=== PATIENT | female | born 1995 | race Caucasian/White ===

== ENCOUNTER 2019-07-23 08:47 | Outpatient (CLI) | payer OTHER ==
[2019-07-23 09:10] VITALS: BP 143/88
--- NOTE | 2019-07-23 18:07 | PROCEDURE REPORT ---
- HPI Diagnosis/Indication for NST: Gestational Hypertension Current EDU 08/06/19 Gestation 38 Weeks and 0 Days 1 Para 0 Vital Signs Temperature 36.6 C 07/23/19 09:04 Heart Rate 90 07/23/19 09:04 Respiratory Rate 16 07/23/19 09:04 Blood Pressure 143/88 H 07/23/19 09:04 O2 Saturation 100 07/23/19 09:04 Temperature 36.6 C 07/23/19 09:04 Heart Rate 90 07/23/19 09:04 Respiratory Rate 16 07/23/19 09:04 Blood Pressure 143/88 H 07/23/19 09:04 O2 Saturation 100 07/23/19 09:04 - NST Procedure NST Procedure Start Date 07/23/19 Start Time 08:55 Stop Time 09:45 Vibroacoustic Stimulation Used No Patient States Movement Yes - Results and Plan Plan: Isamar presents to [facility] at 38.0wks gestation following her routine visit at [facility] secondary to her diagnoes of gestational HTN and gestational diabetes. NST performed 07/23/19 and read 07/23/2019 NST reactive. Baseline 140s, moderate variability, + accels, no decels Pt released home with precautions and reviewed PIH warning s/sx. F/u in 1 week for routine pp visit as scheduled. IOL scheduled 07/30/2019 with operations support manager physician FINAL DIAGNOSIS: Gestational HTN, third trimester Gestational diabetes, third trimester
== END 2019-07-23 09:50 | disposition home or self-care (01) ==
LOC: WFO 08:47 → FBP 08:50 → WFO 09:50
PROVIDERS: ATTEND Nurse Practitioner Obstetrics & Gynecology
DX: O13.3 Gestational [pregnancy-induced] hypertension without significant proteinuria, third trimester (principal); O24.419 Gestational diabetes mellitus in pregnancy, unspecified control; Z3A.38 38 weeks gestation of pregnancy
CPT/HCPCS: 36415; 59025; 82565; 83615; 84450; 84550; 85027

== ENCOUNTER 2019-07-23 09:59 | Outpatient (CLI) | payer OTHER ==
[2019-07-23 10:34] LABS: MEAN CORPUSCULAR VOLUME 87.8 fL (81.0-99.0); MEAN PLATELET VOLUME 10.8 fL (7.9-10.8); RED BLOOD COUNT 4.49 10^6/uL (4.20-5.40); RED CELL DISTRIBUTION WIDTH 14.4 % (12.0-15.0); WHITE BLOOD COUNT 10.8 x10^3/uL (4.8-10.8)
[2019-07-23 10:52] LABS: CREATININE 0.6 mg/dL (0.4-1.0); URIC ACID 4.6 mg/dL (2.6-7.2)
== END 2019-07-23 10:00 | disposition home or self-care (01) ==
LOC: LAB 09:59
PROVIDERS: ATTEND Nurse Practitioner Obstetrics & Gynecology
DX: O16.9 Unspecified maternal hypertension, unspecified trimester (principal); Z3A.00 Weeks of gestation of pregnancy not specified
CPT/HCPCS: 36415; 82565; 83615; 84450; 84550; 85027

== ENCOUNTER 2019-07-29 16:25 | Inpatient (IN) | payer OTHER ==
[2019-07-29 17:09] LABS: BASOPHILS % (AUTO) 0.2 %; EOSINOPHILS # (AUTO) 0.1 10^3/uL (0.0-0.7); EOSINOPHILS % (AUTO) 1.2 %; HGB - HEMOGLOBIN 12.7 g/dL (12.0-16.0); LYMPHOCYTES # (AUTO) 2.1 10^3/uL (1.5-3.5); LYMPHOCYTES % (AUTO) 19.9 %; MEAN CORPUSCULAR HEMOGLOBIN 29.3 pg (27.0-31.0); MEAN CORPUSCULAR HGB CONC 33.8 g/dL (32.0-36.0); MEAN CORPUSCULAR VOLUME 86.6 fL (81.0-99.0); MEAN PLATELET VOLUME 10.5 fL (7.9-10.8); MONOCYTES # (AUTO) 0.7 10^3/uL (0.0-1.0); MONOCYTES % (AUTO) 6.4 %; NEUTROPHILS # (AUTO) 7.5 10^3/uL (1.5-6.6); NEUTROPHILS % (AUTO) 71.8 %; PLT - PLATELET COUNT 261 10^3/uL (130-450); RED BLOOD COUNT 4.34 10^6/uL (4.20-5.40); RED CELL DISTRIBUTION WIDTH 13.5 % (12.0-15.0); WHITE BLOOD COUNT 10.5 x10^3/uL (4.8-10.8)
[2019-07-29 17:25] LABS: URIC ACID 4.7 mg/dL (2.6-7.2)
[2019-07-29 17:47] LABS: CREATININE,URINE 93.3 mg/dL; PROTEIN/CREATININE RATIO,URINE 0.8 (<=0.2)
[2019-07-29] MEDS ORDERED: ACETAMINOPHEN 325 MG TABLET PO PRN (17:55)
[2019-07-29] MEDS ORDERED: ONDANSETRON 4 MG/2 ML VIAL IVP PRN (17:55)
[2019-07-29] MEDS ORDERED: fentaNYL 100 MCG/2 ML VIAL IVP PRN (17:55)
[2019-07-29] MEDS ORDERED: OXYTOCIN/DEXTROSE 5 % 30 UNIT/500 ML BAG IV PRN (17:55)
[2019-07-29] MEDS ORDERED: SODIUM CHLORIDE FLUSH 0.9% 10 ML SYRINGE IVP PRN (17:55)
[2019-07-29] MEDS ORDERED: LACTATED RINGERS 1,000 ML IV SCH (18:00)
[2019-07-29] MEDS ORDERED: miSOPROStoL 100 MCG TABLET BC ONE (19:00)
[2019-07-29 19:10] LABS: ALBUMIN 2.9 g/dL (3.2-5.5); ALBUMIN/GLOBULIN RATIO 0.8 (1.0-2.2); BILIRUBIN,TOTAL 0.3 mg/dL (0.2-1.0); CALCIUM 9.4 mg/dL (8.5-10.3); CREATININE 0.5 mg/dL (0.4-1.0); TOTAL PROTEIN 6.4 g/dL (6.7-8.2)
[2019-07-29] MEDS ORDERED: LABETALOL 100 MG TABLET PO SCH (21:00)
--- NOTE | 2019-07-29 23:30 | HISTORY & PHYSICAL EXAMINATION ---
DATE OF SERVICE: 07/29/2019 Physician: Lety Olson MD CHIEF COMPLAINT: Preeclampsia. HISTORY OF PRESENT ILLNESS: The patient was sent over from clinic today with a diagnosis of preeclam psia. She presented to clinic just for a routine visit. At clinic, her blood pressure was found to be 158/86. She had 2+ protein. On arrival here, she is feeling well. No contractions, ble eding or loss of fluid. She is experiencing good movement. No headaches, visual changes or up per abdominal pain. Her lower extremities are swollen, but not much more than usual. While she is n ot having any current visual changes, for the past 2 months, she has had some scotoma. These are not increased in severity or frequency over time. PAST MEDICAL HISTORY 1. Type A1 gestational diabetes. 2. Gestational hypertension. 3. Overweight. PAST SURGICAL HISTORY: [place] teeth. SOCIAL HISTORY: No tobacco, alcohol or drug use. 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 The father o f the baby is not involved. ALLERGIES: NO KNOWN DRUG ALLERGIES. MEDICATIONS: vitamins daily and labetalol 100 mg b.i.d. OBSTETRIC HISTORY: The patient is a G1, P0 at 38 weeks and 6 days by last menstrual period consisten t with a 19-week ultrasound. Her was complicated by her class A1 gestational diabetes. Sh e had a 1-hour that was elevated and her 3-hour had all abnormal values. She reports good diet contr ol, but her log is not available. She reports fasting sugars of 85 and 2-hour postprandial sugars of 85-112. She was diagnosed with gestational hypertension at 28 weeks. At 30 weeks she was started o n labetalol 100 mg b.i.d. for her blood pressures. She has not been taking her blood pressures at [facility]. The patient is Rh negative and got RhoGAM on 05/19/2019. She had a normal anatomy scan with a p osterior placenta, no previa. She declined genetic screening. Blood type B negative, rubella immune , group B strep negative. Pap is listed as abnormal, but the result is not available. She received her flu vaccine and TDAP during the . PHYSICAL EXAMINATION GENERAL: The patient is alert and pleasant, in no apparent distress. VITAL SIGNS: Her blood pressure is 152/103. HEART: Regular rate and rhythm with a 2/6 holosystolic murmur. LUNGS: Clear to auscultation bilaterally. ABDOMEN: Soft, nontender, nondistended. Estimated weight is AGA by Elvin. She is vertex by Elvin. In the office, she was 3 cm dilated, 50% effaced, -2 station, soft, in mid position. EXTREMITIES: 1+ ankle edema that is nonpitting. Her reflexes are 1+ patella, bilateral. She has 1 beat of clonus. LABORATORY DATA: Include a protein to creatinine ratio of 0.8, AST 20, platelets 261. Hematocrit 37 . Her uric acid was also normal. ASSESSMENT AND PLAN 1. A 24-year-old G1, at 38 weeks and 6 days by last menstrual period, consistent with a 19-week ultr asound with preeclampsia without severe features. Her blood pressures are on the edge of being in th e severe range. She has been on labetalol at home we will continue the 100 mg b.i.d. If she does re ach severe range of sustained blood pressures then magnesium sulfate prophylaxis will be considered. She has no symptoms of preeclampsia and her lab work is normal with the exception of her proteinuria . We will remain vigilant for any signs of worsening preeclampsia. 2. Rh negative. She received RhoGAM on 05/19/2019. We will need a RhoGAM workup . 3. Gestational diabetes type A1. We will check one blood sugar postprandial and if this is okay, th en we will not check further. wellbeing is reassuring with a category 1 NST and vertex present ation and AGA sizes. 4. Group B strep was negative. 5. Induction of labor is warranted for her preeclampsia at 37 weeks' gestation and beyond, her Bisho p score is 7. The rationale and benefits and risks of induction of labor were discussed. We will st art with ripening with 50 mcg of Cytotec buccal. We will then follow with Pitocin this evening. She is unsure what she wants to do for pain control, but she favors a stepwise approach. TD: 07/29/2019 18:16
[2019-07-30] MEDS ORDERED: OXYTOCIN/DEXTROSE 5 % 30 UNIT/500 ML BAG IV SCH ×2 (00:01→08:00)
[2019-07-30] MEDS ORDERED: SODIUM CHLORIDE FLUSH 0.9% 10 ML SYRINGE IVP SCH (01:00)
[2019-07-30] MEDS ORDERED: ROPIVACAINE 0.2% 200 MG/100 ML BAG EP ONE (01:15)
--- NOTE | 2019-07-30 01:18 | ANESTHESIA ---
Pre-Anesthesia VS, & Labs - Diagnosis Active labor - Procedure vaginal delivery Vital Signs: Temp Pulse Resp BP Pulse Ox 36.5 C 108 H 20 150/96 H 100 07/30/19 01:00 07/30/19 01:00 07/30/19 01:00 07/30/19 01:00 07/30/19 01:00 Height 5 ft 3 in Weight (kg) 88.904 kg - Is Patient ?: Yes - Lab Results Current Lab Results: Laboratory Tests 07/29/19 20:01: Blood Type A NEGATIVE, Antibody Screen NEGATIVE 07/29/19 18:30: Sodium 137, Potassium 3.5, Chloride 106, Carbon Dioxide 20 L, Anion Gap 11.0, BUN 12, Creatinine 0.5, Estimated GFR (MDRD) 154, Glucose 87, Calcium 9.4, Total Bilirubin 0.3, AST 20, ALT 16, Alkaline Phosphatase 122 H, Total Protein 6.4 L, Albumin 2.9 L, Globulin 3.5, Albumin/Globulin Ratio 0.8 L 07/29/19 17:03: Blood Type Recheck A NEGATIVE 07/29/19 17:03: TSH 2.16 07/29/19 17:03: Uric Acid 4.7, AST 20 07/29/19 17:03: WBC 10.5, RBC 4.34, Hgb 12.7, Hct 37.6, MCV 86.6, MCH 29.3, MCHC 33.8, RDW 13.5, Plt Count 261, MPV 10.5, Neut # (Auto) 7.5 H, Lymph # (Auto) 2.1, [place] # (Auto) 0.7, Eos # (Auto) 0.1, Baso # (Auto) 0.0, Absolute Nucleated RBC 0.00, Nucleated RBC % 0.0 07/29/19 17:03: Lactate Dehydrogenase 129 Fish Bones: 07/29/19 17:03 07/29/19 18:30 Home Medications and Allergies Active Medications Acetaminophen (Tylenol) 650 mg PO Q6H PRN PRN Reason: Pain or Fever Last Admin: 07/29/19 23:47 Dose: 650 mg Fentanyl (Fentanyl) 50 mcg IVP Q1H PRN PRN Reason: PAIN Last Admin: 07/29/19 23:47 Dose: 50 mcg Lactated Ringer's (Lr) 1,000 mls @ 100 mls/hr IV .Q10H LYNETTE OXYTOCIN/DEXTROSE 5 % (Pitocin/Dextrose 5%) 30 unit in 500 mls @ 1 mls/hr IV TITR LYNETTE; Protocol OXYTOCIN/DEXTROSE 5 % (Pitocin/Dextrose 5%) 30 unit in 500 mls @ 999 mls/hr IV PRN PRN; Protocol PRN Reason: POST- HEMORR PREVENTION Labetalol HCl (Trandate) 100 mg PO BID LYNETTE Last Admin: 07/29/19 22:51 Dose: 100 mg Ondansetron HCl (Zofran Inj) 4 mg IVP Q4HR PRN PRN Reason: Nausea / Vomiting Sodium Chloride (Normal Saline Flush 0.9%) 10 ml IVP 0100,0900,1700 LYNETTE Sodium Chloride (Normal Saline Flush 0.9%) 10 ml IVP PRN PRN PRN Reason: NEEDED PER PROVIDER ORDERS Allergies/Adverse Reactions: Allergies Allergy/AdvReac Type Severity Reaction Status Date / Time No Known Drug Allergies Allergy Verified 07/29/19 19:23 Anes History & Medical History - Anesthetic History Anesthesia Complications: reports: No previous complications - Medical History Cardiovascular: reports: Hypertension (gestational) Pulmonary: reports: None Gastrointestinal: reports: None Urinary: reports: None Neuro: reports: None Musculoskeletal: reports: None Endocrine/Autoimmune: reports: Other (gestational diabetes) Skin: reports: None Smoking Status: Never smoker - Surgical History Eyes Ears Nose Throat (EENT): Other ([place] teeth) - Obstetrical History : 1 Parity: 0 Events: positive: Gestational diabetes, Other (gestational hyperten kennedy) Exam General: Alert, Oriented x3, Cooperative, Severe distress Dental: WNL Mouth Openin Fingerbreadth Neck Mobility: Normal Mallampati classification: II Mental/Cognitive Status: Alert/Oriented X3, Normal for patient Plan Anesthesia Type: Epidural Consent for Procedure(s) Verified and Reviewed: Yes Code Status: Attempt Resuscitation ASA classification: 2-Mild systemic disease Is this case an emergency?: No
[2019-07-30] MEDS ORDERED: ROPIVACAINE 0.2% 200 MG/100 ML BAG EP PRN (01:50)
[2019-07-30] MEDS ORDERED: NALOXONE 0.4 MG/ML VIAL IVP PRN (01:50)
[2019-07-30] MEDS ORDERED: ONDANSETRON 4 MG/2 ML VIAL IVP PRN (01:50)
[2019-07-30] MEDS ORDERED: NALBUPHINE 10 MG/ML AMP IVP PRN (01:50)
[2019-07-30] MEDS ORDERED: TERBUTALINE 1 MG/ML VIAL SUBQ ONE ×2 (02:16→04:00)
[2019-07-30] MEDS ORDERED: SODIUM CHLORIDE 0.9% 500 ML ONE (03:26)
--- NOTE | 2019-07-30 03:42 | PROVIDER PROGRESS NOTE ---
Objective - Vital Signs/Intake & Output Vital Signs: Vital Signs x48h Temp Pulse Resp BP Pulse Ox 07/30/19 01:00 97.7 F 108 H 20 150/96 H 100 07/30/19 00:00 98.1 F 92 18 149/93 H 100 07/29/19 23:00 97.9 F 95 20 151/78 H 100 07/29/19 22:00 97.9 F 97 18 151/81 H 100 07/29/19 21:00 97.9 F 97 16 140/88 H 100 07/29/19 20:00 98.1 F 81 16 144/81 H 100 - Lab Results Fish Bones: 07/29/19 17:03 07/29/19 18:30 Other Labs: Lab Results x24hrs 07/29/19 07/29/19 07/29/19 Range/Units 20:01 18:30 17:03 WBC (4.8-10.8) x10^3/uL RBC (4.20-5.40) 10^6/uL Hgb (12.0-16.0) g/dL Hct (37.0-47.0) % MCV (81.0-99.0) fL MCH (27.0-31.0) pg MCHC (32.0-36.0) g/dL RDW (12.0-15.0) % Plt Count (130-450) 10^3/uL MPV (7.9-10.8) fL Neut # (Auto) (1.5-6.6) 10^3/uL Lymph # (Auto) (1.5-3.5) 10^3/uL [place] # (Auto) (0.0-1.0) 10^3/uL Eos # (Auto) (0.0-0.7) 10^3/uL Baso # (Auto) (0.0-0.1) 10^3/uL Absolute Nucleated RBC x10^3/uL Nucleated RBC % /100WBC Sodium 137 (135-145) mmol/L Potassium 3.5 (3.5-5.0) mmol/L Chloride 106 (101-111) mmol/L Carbon Dioxide 20 L (21-32) mmol/L Anion Gap 11.0 (6-13) BUN 12 (6-20) mg/dL Creatinine 0.5 (0.4-1.0) mg/dL Estimated GFR (MDRD) 154 (>89) Glucose 87 (70-100) mg/dL Uric Acid (2.6-7.2) mg/dL Calcium 9.4 (8.5-10.3) mg/dL Total Bilirubin 0.3 (0.2-1.0) mg/dL AST 20 (10-42) IU/L ALT 16 (10-60) IU/L Alkaline Phosphatase 122 H (42-121) IU/L Lactate Dehydrogenase (91-225) IU/L Total Protein 6.4 L (6.7-8.2) g/dL Albumin 2.9 L (3.2-5.5) g/dL Globulin 3.5 (2.1-4.2) g/dL Albumin/Globulin Ratio 0.8 L (1.0-2.2) TSH (0.34-5.60) uIU/mL Urine Creatinine mg/dL Ur Total Protein Timed mg/dL Protein/Creatinin Ratio (<=0.2) Blood Type A NEGATIVE Blood Type Recheck A NEGATIVE Antibody Screen NEGATIVE 07/29/19 07/29/19 07/29/19 Range/Units 17:03 17:03 17:03 WBC 10.5 (4.8-10.8) x10^3/uL RBC 4.34 (4.20-5.40) 10^6/uL Hgb 12.7 (12.0-16.0) g/dL Hct 37.6 (37.0-47.0) % MCV 86.6 (81.0-99.0) fL MCH 29.3 (27.0-31.0) pg MCHC 33.8 (32.0-36.0) g/dL RDW 13.5 (12.0-15.0) % Plt Count 261 (130-450) 10^3/uL MPV 10.5 (7.9-10.8) fL Neut # (Auto) 7.5 H (1.5-6.6) 10^3/uL Lymph # (Auto) 2.1 (1.5-3.5) 10^3/uL [place] # (Auto) 0.7 (0.0-1.0) 10^3/uL Eos # (Auto) 0.1 (0.0-0.7) 10^3/uL Baso # (Auto) 0.0 (0.0-0.1) 10^3/uL Absolute Nucleated RBC 0.00 x10^3/uL Nucleated RBC % 0.0 /100WBC Sodium (135-145) mmol/L Potassium (3.5-5.0) mmol/L Chloride (101-111) mmol/L Carbon Dioxide (21-32) mmol/L Anion Gap (6-13) BUN (6-20) mg/dL Creatinine (0.4-1.0) mg/dL Estimated GFR (MDRD) (>89) Glucose (70-100) mg/dL Uric Acid 4.7 (2.6-7.2) mg/dL Calcium (8.5-10.3) mg/dL Total Bilirubin (0.2-1.0) mg/dL AST 20 (10-42) IU/L ALT (10-60) IU/L Alkaline Phosphatase (42-121) IU/L Lactate Dehydrogenase (91-225) IU/L Total Protein (6.7-8.2) g/dL Albumin (3.2-5.5) g/dL Globulin (2.1-4.2) g/dL Albumin/Globulin Ratio (1.0-2.2) TSH 2.16 (0.34-5.60) uIU/mL Urine Creatinine mg/dL Ur Total Protein Timed mg/dL Protein/Creatinin Ratio (<=0.2) Blood Type Blood Type Recheck Antibody Screen 07/29/19 07/29/19 Range/Units 17:03 16:40 WBC (4.8-10.8) x10^3/uL RBC (4.20-5.40) 10^6/uL Hgb (12.0-16.0) g/dL Hct (37.0-47.0) % MCV (81.0-99.0) fL MCH (27.0-31.0) pg MCHC (32.0-36.0) g/dL RDW (12.0-15.0) % Plt Count (130-450) 10^3/uL MPV (7.9-10.8) fL Neut # (Auto) (1.5-6.6) 10^3/uL Lymph # (Auto) (1.5-3.5) 10^3/uL [place] # (Auto) (0.0-1.0) 10^3/uL Eos # (Auto) (0.0-0.7) 10^3/uL Baso # (Auto) (0.0-0.1) 10^3/uL Absolute Nucleated RBC x10^3/uL Nucleated RBC % /100WBC Sodium (135-145) mmol/L Potassium (3.5-5.0) mmol/L Chloride (101-111) mmol/L Carbon Dioxide (21-32) mmol/L Anion Gap (6-13) BUN (6-20) mg/dL Creatinine (0.4-1.0) mg/dL Estimated GFR (MDRD) (>89) Glucose (70-100) mg/dL Uric Acid (2.6-7.2) mg/dL Calcium (8.5-10.3) mg/dL Total Bilirubin (0.2-1.0) mg/dL AST (10-42) IU/L ALT (10-60) IU/L Alkaline Phosphatase (42-121) IU/L Lactate Dehydrogenase 129 (91-225) IU/L Total Protein (6.7-8.2) g/dL Albumin (3.2-5.5) g/dL Globulin (2.1-4.2) g/dL Albumin/Globulin Ratio (1.0-2.2) TSH (0.34-5.60) uIU/mL Urine Creatinine 93.3 mg/dL Ur Total Protein Timed 75 mg/dL Protein/Creatinin Ratio 0.8 H (<=0.2) Blood Type Blood Type Recheck Antibody Screen Assessment/Plan - Problem List (1) Pre-eclampsia affecting , antepartum Impression: G1 undergoing IOL at 38w for "mild" preeclampsia. Got 1 dose of misoprostol. Was comfortable until went to the toilet and became suddenly uncomforable, SROM clear/copious a few minutes after that. BPs 150s/90's prior to epidural. Received epidural for pain control. BPs decreased to 130s/70s. Change in NST from category 1 to category 2. Has maintained moderate LTV throughout. Developed variable decelerations associated with contractions. We have performed multiple position changes, applied O2 at 10L, IVF bolus of 700cc. US showed OT barely ROP position. SVE 9/90/-2 with significant cervix on the left side and absent on the right. Foot drop and peanut ball initiated. Variables continued. Amnioinfusion performed post verbal consent. IUPC placed without difficulty. Bolus 200cc. Will continue to observe continuously.
[2019-07-30] MEDS ORDERED: OXYTOCIN/DEXTROSE 5 % 30 UNIT/500 ML BAG IV ONE (03:54)
[2019-07-30] MEDS ORDERED: WITCH HAZEL/GLYCERIN 1 PAD TOP PRN (07:38)
[2019-07-30] MEDS ORDERED: SIMETHICONE CHEW 80 MG TABLET PO PRN (07:38)
[2019-07-30] MEDS ORDERED: ONDANSETRON ODT 4 MG TABLET TL PRN (07:38)
[2019-07-30] MEDS ORDERED: HYDROCORTISONE 1% CREAM 28 GM TUBE PR PRN (07:38)
[2019-07-30] MEDS ORDERED: MAGNESIUM SULFATE 2 GRAM 6 GM/150 ML BAG IV ONE (08:00)
[2019-07-30] MEDS ORDERED: TRANEXAMIC ACID 1,000 MG in SODIUM CHLORIDE 0.9% 100ML 100 ML IV ONE (08:00)
[2019-07-30 09:00] LABS: BASOPHILS # (AUTO) 0.1 10^3/uL (0.0-0.1); BASOPHILS % (AUTO) 0.4 %; EOSINOPHILS % (AUTO) 0.1 %; HGB - HEMOGLOBIN 12.3 g/dL (12.0-16.0); LYMPHOCYTES # (AUTO) 1.7 10^3/uL (1.5-3.5); LYMPHOCYTES % (AUTO) 10.3 %; MEAN CORPUSCULAR HEMOGLOBIN 28.9 pg (27.0-31.0); MEAN CORPUSCULAR HGB CONC 33.1 g/dL (32.0-36.0); MEAN CORPUSCULAR VOLUME 87.3 fL (81.0-99.0); MEAN PLATELET VOLUME 10.4 fL (7.9-10.8); MONOCYTES # (AUTO) 0.9 10^3/uL (0.0-1.0); MONOCYTES % (AUTO) 5.7 %; NEUTROPHILS # (AUTO) 13.3 10^3/uL (1.5-6.6); NEUTROPHILS % (AUTO) 82.6 %; PLT - PLATELET COUNT 232 10^3/uL (130-450); RED BLOOD COUNT 4.26 10^6/uL (4.20-5.40); RED CELL DISTRIBUTION WIDTH 13.5 % (12.0-15.0); WHITE BLOOD COUNT 16.1 x10^3/uL (4.8-10.8)
--- NOTE | 2019-07-30 09:09 | PROVIDER PROGRESS NOTE ---
Subjective - Prog Note Date Prog Note Date: 07/30/19 Prog Note Time: 09:05 - Subjective Pt reports feeling: Improved (Pt delivered at 0645 Vaccume for intolerance. Post delivery She became very fatigued . she remained responsive and responedd to commands. durring this time he BP was 140/80-90 wiht good out put. An US ruled out an intra abdominal bleed. She recieved TXA and IV Pitocin for bleeding control. Sat remained normal. Seh recovered spontainously. she has SCD and floley inplace.) Objective - Vital Signs/Intake & Output Reviewed Vital Signs: Yes Vital Signs: Vital Signs x48h Temp Pulse Resp BP Pulse Ox 07/30/19 08:56 36.9 C 99 20 141/77 H 100 07/30/19 08:50 96 18 141/80 H 100 07/30/19 08:35 88 20 134/71 H 100 07/30/19 08:31 90 18 141/92 H 100 07/30/19 08:27 133/86 H 07/30/19 08:26 91 18 144/75 H 100 07/30/19 08:21 92 18 138/77 H 100 07/30/19 08:16 92 20 144/85 H 100 07/30/19 08:11 95 20 138/77 H 100 07/30/19 08:06 91 20 148/72 H 100 07/30/19 08:00 96 154/72 H 100 07/30/19 07:59 106 H 07/30/19 06:00 101 H 20 138/89 H 100 07/30/19 05:00 95 20 128/72 100 07/30/19 04:30 98 20 120/73 100 07/30/19 03:30 86 20 128/71 100 07/30/19 03:00 91 18 129/67 100 07/30/19 02:00 93 20 130/64 100 Intake & Output: Intake & Output 07/27/19 07/28/19 07/29/19 07/30/19 23:59 23:59 23:59 23:59 Output Total 700 Balance -700 - Objective General Appearance: positive: No acute distress (breast feeding) Neck: positive: Nml inspection, No JVD Respiratory: positive: Chest non-tender, No respiratory distress, Breath sounds nml Cardiovascular: positive: Regular rate & rhythm, No murmur, No gallop Abdomen: positive: Nml bowel sounds, Tenderness (uterus), Mass (at U) Skin: positive: Color nml, No rash, Warm, Dry Neurologic/Psychiatric: positive: Oriented x3, Motor nml - Lab Results Fish Bones: 07/29/19 17:03 07/29/19 18:30 Other Labs: Lab Results x24hrs 07/29/19 07/29/19 07/29/19 Range/Units 20:01 18:30 17:03 WBC (4.8-10.8) x10^3/uL RBC (4.20-5.40) 10^6/uL Hgb (12.0-16.0) g/dL Hct (37.0-47.0) % MCV (81.0-99.0) fL MCH (27.0-31.0) pg MCHC (32.0-36.0) g/dL RDW (12.0-15.0) % Plt Count (130-450) 10^3/uL MPV (7.9-10.8) fL Neut # (Auto) (1.5-6.6) 10^3/uL Lymph # (Auto) (1.5-3.5) 10^3/uL [place] # (Auto) (0.0-1.0) 10^3/uL Eos # (Auto) (0.0-0.7) 10^3/uL Baso # (Auto) (0.0-0.1) 10^3/uL Absolute Nucleated RBC x10^3/uL Nucleated RBC % /100WBC Sodium 137 (135-145) mmol/L Potassium 3.5 (3.5-5.0) mmol/L Chloride 106 (101-111) mmol/L Carbon Dioxide 20 L (21-32) mmol/L Anion Gap 11.0 (6-13) BUN 12 (6-20) mg/dL Creatinine 0.5 (0.4-1.0) mg/dL Estimated GFR (MDRD) 154 (>89) Glucose 87 (70-100) mg/dL Uric Acid (2.6-7.2) mg/dL Calcium 9.4 (8.5-10.3) mg/dL Total Bilirubin 0.3 (0.2-1.0) mg/dL AST 20 (10-42) IU/L ALT 16 (10-60) IU/L Alkaline Phosphatase 122 H (42-121) IU/L Lactate Dehydrogenase (91-225) IU/L Total Protein 6.4 L (6.7-8.2) g/dL Albumin 2.9 L (3.2-5.5) g/dL Globulin 3.5 (2.1-4.2) g/dL Albumin/Globulin Ratio 0.8 L (1.0-2.2) TSH (0.34-5.60) uIU/mL Urine Creatinine mg/dL Ur Total Protein Timed mg/dL Protein/Creatinin Ratio (<=0.2) Blood Type A NEGATIVE Blood Type Recheck A NEGATIVE Antibody Screen NEGATIVE 07/29/19 07/29/19 07/29/19 Range/Units 17:03 17:03 17:03 WBC 10.5 (4.8-10.8) x10^3/uL RBC 4.34 (4.20-5.40) 10^6/uL Hgb 12.7 (12.0-16.0) g/dL Hct 37.6 (37.0-47.0) % MCV 86.6 (81.0-99.0) fL MCH 29.3 (27.0-31.0) pg MCHC 33.8 (32.0-36.0) g/dL RDW 13.5 (12.0-15.0) % Plt Count 261 (130-450) 10^3/uL MPV 10.5 (7.9-10.8) fL Neut # (Auto) 7.5 H (1.5-6.6) 10^3/uL Lymph # (Auto) 2.1 (1.5-3.5) 10^3/uL [place] # (Auto) 0.7 (0.0-1.0) 10^3/uL Eos # (Auto) 0.1 (0.0-0.7) 10^3/uL Baso # (Auto) 0.0 (0.0-0.1) 10^3/uL Absolute Nucleated RBC 0.00 x10^3/uL Nucleated RBC % 0.0 /100WBC Sodium (135-145) mmol/L Potassium (3.5-5.0) mmol/L Chloride (101-111) mmol/L Carbon Dioxide (21-32) mmol/L Anion Gap (6-13) BUN (6-20) mg/dL Creatinine (0.4-1.0) mg/dL Estimated GFR (MDRD) (>89) Glucose (70-100) mg/dL Uric Acid 4.7 (2.6-7.2) mg/dL Calcium (8.5-10.3) mg/dL Total Bilirubin (0.2-1.0) mg/dL AST 20 (10-42) IU/L ALT (10-60) IU/L Alkaline Phosphatase (42-121) IU/L Lactate Dehydrogenase (91-225) IU/L Total Protein (6.7-8.2) g/dL Albumin (3.2-5.5) g/dL Globulin (2.1-4.2) g/dL Albumin/Globulin Ratio (1.0-2.2) TSH 2.16 (0.34-5.60) uIU/mL Urine Creatinine mg/dL Ur Total Protein Timed mg/dL Protein/Creatinin Ratio (<=0.2) Blood Type Blood Type Recheck Antibody Screen 07/29/19 07/29/19 Range/Units 17:03 16:40 WBC (4.8-10.8) x10^3/uL RBC (4.20-5.40) 10^6/uL Hgb (12.0-16.0) g/dL Hct (37.0-47.0) % MCV (81.0-99.0) fL MCH (27.0-31.0) pg MCHC (32.0-36.0) g/dL RDW (12.0-15.0) % Plt Count (130-450) 10^3/uL MPV (7.9-10.8) fL Neut # (Auto) (1.5-6.6) 10^3/uL Lymph # (Auto) (1.5-3.5) 10^3/uL [place] # (Auto) (0.0-1.0) 10^3/uL Eos # (Auto) (0.0-0.7) 10^3/uL Baso # (Auto) (0.0-0.1) 10^3/uL Absolute Nucleated RBC x10^3/uL Nucleated RBC % /100WBC Sodium (135-145) mmol/L Potassium (3.5-5.0) mmol/L Chloride (101-111) mmol/L Carbon Dioxide (21-32) mmol/L Anion Gap (6-13) BUN (6-20) mg/dL Creatinine (0.4-1.0) mg/dL Estimated GFR (MDRD) (>89) Glucose (70-100) mg/dL Uric Acid (2.6-7.2) mg/dL Calcium (8.5-10.3) mg/dL Total Bilirubin (0.2-1.0) mg/dL AST (10-42) IU/L ALT (10-60) IU/L Alkaline Phosphatase (42-121) IU/L Lactate Dehydrogenase 129 (91-225) IU/L Total Protein (6.7-8.2) g/dL Albumin (3.2-5.5) g/dL Globulin (2.1-4.2) g/dL Albumin/Globulin Ratio (1.0-2.2) TSH (0.34-5.60) uIU/mL Urine Creatinine 93.3 mg/dL Ur Total Protein Timed 75 mg/dL Protein/Creatinin Ratio 0.8 H (<=0.2) Blood Type Blood Type Recheck Antibody Screen Assessment/Plan - Problem List (1) Pre-eclampsia affecting , antepartum Impression: Blood pressure in the mild range. P/C ratio 0.8 other labs normal (2) Vacuum-assisted vaginal delivery Impression: baby adn mother ruby juárez (3) Gestational diabetes Impression: Placeing Pt on ADA diet. Qualifiers: Gestational diabetes mellitus control: diet-controlled
[2019-07-30 09:15] LABS: PT - PROTHROMBIN TIME 11.3 secs (9.9-12.6)
[2019-07-30 09:22] LABS: ALBUMIN 2.8 g/dL (3.2-5.5); ALBUMIN/GLOBULIN RATIO 0.8 (1.0-2.2); BILIRUBIN,TOTAL 0.4 mg/dL (0.2-1.0); CALCIUM 8.7 mg/dL (8.5-10.3); CREATININE 0.6 mg/dL (0.4-1.0); TOTAL PROTEIN 6.4 g/dL (6.7-8.2)
--- NOTE | 2019-07-30 09:28 | CONSULTATION NOTE ---
DATE OF SERVICE: 07/30/2019 Physician: Lety Olson MD PROGRESS NOTE The patient is recently status post vacuum-assisted vaginal delivery for nonreassuring heart tones. She has an epidural in place and had pre-eclampsia without severe features and had been normotensive since an epidural was placed hours ago. Her estimated blood loss was 200 mL and she was recovering a s per usual. She was sitting up, trying to breastfeed her baby. She had been sitting up for a while without problems. Suddenly, she felt very faint and like she was going to pass out. She was immedi ately laid flat by her nurse who called for help. I was immediately in the room. The patient was re sponsive, but was not quick to answer questions. She appeared very pale. Her heart rate was right a round 100. She was saturating 100% and had initial blood pressure of 160/130. Magnesium 6 grams was called for to be in the room. I did an ultrasound, which did not reveal any blood in her abdominal cavity. Her abdomen was soft and nondistended. Her fundus was firm and 1 cm below the umbilicus. On ultrasound, the uterus was free of any retained clot or products of conception. She was crossed for 2 units of packed red blood cells and labs were called for including CBC, CMP, PT , PTT, INR and fibrinogen. Unfortunately, she has been a hard stick and the labs are not even drawn yet, although we were continuing to try. She had SCDs placed and a Robles catheter placed. Two minut es after that elevated blood pressure, her blood pressures improved to 140s over 90s. She did not gould ve any headache, visual changes, or upper abdominal pain. Because of this, I did not start the magne sium sulfate. Her blood pressures persisted at 140/90 or lower. Her most recent blood pressure was 130s over 70s. Her heart rate is in the 90s. Her legs were free of any erythema, tenderness or cord to suggest DVT. She had an EKG that was normal. At this time, I feel like the patient became suddenly faint because of dynamic cardiovascular changes after delivery. She does not seem to have pulmonary embolism or amniotic fluid embolism based on he r lack of tachycardia, lack of chest pain, lack of shortness of breath, and normal oxygen saturation. She does not have any signs of uterine rupture, as she is not having any severe abdominal pain, dis tention or free fluid in her abdomen. She did not have any neurologic changes to suggest seizure or stroke. We will maintain a low threshold to start magnesium therapy. She did not have a cardiac arr hythmia. She also is not having a hemorrhage. Her bleeding was scant and her uterus was firm. Labs are pending. We will continue epidural infusion for about another hour until she proves that she is continuously stable. Currently, she is feeling much better and she has had some color re turn to her face. The patient was checked out to Dr. Sanford Mccullough, as I am going off call. TD: 07/30/2019 08:46
[2019-07-30 09:30] LABS: PARTIAL THROMBOPLASTIN TIME 23.6 secs (24.9-33.3)
--- NOTE | 2019-07-30 10:30 | PROCEDURE REPORT ---
DATE OF SERVICE: 07/30/2019 Physician: Lety Olson MD PREPROCEDURE DIAGNOSES 1. Pre-eclampsia without severe features. 2. Intrauterine at 38 weeks. 3. Induction of labor. POSTPROCEDURE DIAGNOSES 1. Preeclampsia without severe features. 2. Status post vacuum-assisted vaginal delivery, nonreassuring heart tracing. PROCEDURE: Vacuum-assisted vaginal delivery. ATTENDING PHYSICIAN: Lety Olson MD ESTIMATED BLOOD LOSS: 200 mL COUNTS: Correct x2. COMPLICATIONS: None apparent. DISPOSITION: [id number] in the delivery room. FINDINGS: A live-born male, weight is pending. Apgars were 8 at one minute and 9 at five minutes. Cord gases are pending. Amniotic fluid was clear. There was a second-degree perineal laceration. LABOR COURSE: The patient was admitted with pre-eclampsia without severe features. Her blood pressu res were on the high side of the mild range, up to 158/103. Her [id number] ratio was 0.8 and her platelets, AST and ALT were normal. She received dose of misoprostol, which put her into a g reat contraction pattern with really good cervical change. She received an epidural for pain control . Shortly prior to the epidural, she spontaneously ruptured for clear and copious fluid. After the epidural, her blood pressures decreased to 120s over 60s-70s. When she laid back after the epidural, she had changes in her heart rate tracing. Prior to rupture of membranes, her heart tones had been in the 130s with moderate long-term variability present. Accelerations were present and dec elerations were absent. After the epidural and spontaneous rupture of membranes, she developed repetitive variable decels. H er baseline was 150 beats per minute. The nga was 105 beats per minute and they were lasting for 3 0-45 seconds. All of them were associated with contractions. She then developed a late return to [facility] at 2109. I arrived at the bedside in the meantime. We had performed multiple position changes . Oxygen application at 10 liters per minute, and an IV fluid bolus of 750 mL. The patient was reche cked and was found to be complete and -2. By ultrasound, the baby was LOT position. An intrauterine pressure catheter was placed with a goal of amnioinfusion. She received a 300 mL bolus and then 200 mL an hour after that. It did not seem to improve her tracing by much. When she was found to be complete, she was instructed to push. Immediately, the tracing worsened, evelio iability became marked, and bradycardia was present with a nga to the 90s for awhile. At 12 minute s, the baseline was between 120 and 90 beats per minute. During this time, we administered terbutali ne and the patient was put on hands and knees. This immediately improved the tracing. Variable dece lerations persisted during contractions, but they were small. Baseline returned to 140 beats per min nenana and long-term variability was moderate. Despite the terbutaline, the patient continued contracti ng with adequate [place] units. After the fetus had been given time to recover, we started pushin g while she was on her hands and knees. The fetus was tolerating this well on hands and knees position, but Isamar was starting to feel faint and tired. She was changed to a position where her right hip was down and to the side. heart tracing remained favorable and we began to push with every other contraction. By this time, the stat ion was +2 and maternal pushing efforts were excellent and consistent descent was observed. As the p ushing progressed, patient developed a baseline that changed to the 120s. There were periods of marizol ed variability present, but still she was maintaining descent. heart rate dropped to the 90s t o 120s. The patient had been counseled about an hour prior that she might benefit from vacuum-assist ed vaginal delivery. She was given the alternative of section, which would have taken longe r and the baby at more risk because of that. We discussed the risks including bruising of the skin, bleeding on the brain and bleeding on the eye. Shortly after the patient had been repositioned onto her side, her bladder was in-and-out catheterize d for 200 mL of clear urine. At +3 station, her heart rate dropped to the 90s with variability preserved, but this persisted for three contractions. At this point, the patient was counseled that vacuum-assisted vaginal delivery was recommended and she accepted this. The Kiwi vacuum was applied to the vertex of the skull. It was brought to the green zone during her next contraction, and with strong maternal pushing efforts, the head was easily delivered. There was a nuchal cord that w as not terribly tight. The vacuum cup was removed and the nuchal was reduced. The shoulders and bod y were easily delivered. The baby's right shoulder was anterior. The baby was in KASIA position when the vacuum was applied. The baby was placed on mom's abdomen to be warmed, dried and stimulated. Fo r the first 30 seconds, he appeared stunned and so the umbilical cord was clamped x2 and cut. As soon as the umbilical cord was free, he perked up and his first was 8. He was able to stay with mo and did not require any resuscitative efforts. A segment of umbilical cord was saved to send for cord gases. The placenta was delivered about 5 min utes following the baby with a maternal Valsalva. It was intact with a three-vessel cord. Fundal ma ssage yielded a normal amount of blood and clot. Her fundus was very firm and 2 cm below the umbilic us. Pitocin for active management of the third stage of labor was started, after the umbilical cord had been clamped and cut. The patient's second-degree perineal laceration was identified and closed with interrupted sutures of 2-0 Monocryl in order to restore the perineal body. Digital rectal exam was performed and it confirmed the absence of a third- or fourth-degree tear. She had good 360-degre e tone and no suture material in the rectum. The patient tolerated the procedure well. She and baby are bonding. Her epidural will be stopped an d I anticipate that her blood pressures might creep up again. We will repeat pre-eclampsia labs and monitor blood pressures closely. She is Rh negative and cord blood was sent for typing. TD: 07/30/2019 07:42
[2019-07-30] MEDS: IBUPROFEN 600 MG TABLET PO SCH ×2 (11:18→20:06)
[2019-07-30] MEDS: DOCUSATE SODIUM 100 MG CAPSULE PO SCH (11:18)
[2019-07-31] MEDS: IBUPROFEN 600 MG TABLET PO SCH ×2 (05:14→12:57)
[2019-07-31 07:01] LABS: BASOPHILS % (AUTO) 0.3 %; EOSINOPHILS # (AUTO) 0.3 10^3/uL (0.0-0.7); EOSINOPHILS % (AUTO) 2.7 %; HGB - HEMOGLOBIN 11.4 g/dL (12.0-16.0); LYMPHOCYTES # (AUTO) 2.7 10^3/uL (1.5-3.5); MEAN CORPUSCULAR HEMOGLOBIN 28.9 pg (27.0-31.0); MEAN CORPUSCULAR HGB CONC 32.9 g/dL (32.0-36.0); MEAN CORPUSCULAR VOLUME 88.1 fL (81.0-99.0); MEAN PLATELET VOLUME 10.4 fL (7.9-10.8); MONOCYTES # (AUTO) 0.5 10^3/uL (0.0-1.0); MONOCYTES % (AUTO) 5.6 %; NEUTROPHILS # (AUTO) 6.1 10^3/uL (1.5-6.6); NEUTROPHILS % (AUTO) 62.8 %; PLT - PLATELET COUNT 203 10^3/uL (130-450); RED BLOOD COUNT 3.94 10^6/uL (4.20-5.40); RED CELL DISTRIBUTION WIDTH 13.7 % (12.0-15.0); WHITE BLOOD COUNT 9.7 x10^3/uL (4.8-10.8)
[2019-07-31 07:35] LABS: ALBUMIN 2.5 g/dL (3.2-5.5); ALBUMIN/GLOBULIN RATIO 0.7 (1.0-2.2); BILIRUBIN,TOTAL 0.5 mg/dL (0.2-1.0); CALCIUM 8.7 mg/dL (8.5-10.3); CREATININE 0.5 mg/dL (0.4-1.0)
[2019-07-31] MEDS: DOCUSATE SODIUM 100 MG CAPSULE PO SCH ×2 (08:47→21:19)
--- NOTE | 2019-07-31 12:26 | PROVIDER PROGRESS NOTE ---
Subjective - Prog Note Date Prog Note Date: 07/31/19 Prog Note Time: 11:15 - Subjective Subjective: PPD 1 Feeling very well. Ambulating, voiding, scant lochia. No headache, visual changes. Tolerating regular diet. BP's 130-150's/70-90 since delivery Will restart labetalol and continue to observe. Afebrile Abd soft, non tender. Fundus firm below umbilicus. Minimal perineal edema Labs normal A/P Stable however continues to have elevated BP in the mild range Will restart labetalol and continue to observe. No longer checking glucose although baby with labile sugars requiring intervention. Expect DC tomorrow. Objective - Vital Signs/Intake & Output Vital Signs: Vital Signs x48h Temp Pulse Resp BP Pulse Ox 07/31/19 12:18 98.2 F 96 18 145/77 H 100 07/31/19 08:48 98.4 F 92 16 137/77 H 100 07/31/19 04:29 98.6 F 98 16 134/71 H 100 Intake & Output: Intake & Output 07/28/19 07/29/19 07/30/19 07/31/19 23:59 23:59 23:59 23:59 Intake Total 500 500 Output Total 2850 1650 Balance -2350 -1150 - Lab Results Fish Bones: 07/31/19 06:53 07/31/19 06:53 Other Labs: Lab Results x24hrs 07/31/19 07/31/19 Range/Units 06:53 06:53 WBC 9.7 (4.8-10.8) x10^3/uL RBC 3.94 L (4.20-5.40) 10^6/uL Hgb 11.4 L (12.0-16.0) g/dL Hct 34.7 L (37.0-47.0) % MCV 88.1 (81.0-99.0) fL MCH 28.9 (27.0-31.0) pg MCHC 32.9 (32.0-36.0) g/dL RDW 13.7 (12.0-15.0) % Plt Count 203 (130-450) 10^3/uL MPV 10.4 (7.9-10.8) fL Neut # (Auto) 6.1 (1.5-6.6) 10^3/uL Lymph # (Auto) 2.7 (1.5-3.5) 10^3/uL Payne # (Auto) 0.5 (0.0-1.0) 10^3/uL Eos # (Auto) 0.3 (0.0-0.7) 10^3/uL Baso # (Auto) 0.0 (0.0-0.1) 10^3/uL Absolute Nucleated RBC 0.00 x10^3/uL Nucleated RBC % 0.0 /100WBC Sodium 138 (135-145) mmol/L Potassium 4.1 (3.5-5.0) mmol/L Chloride 106 (101-111) mmol/L Carbon Dioxide 24 (21-32) mmol/L Anion Gap 8.0 (6-13) BUN 9 (6-20) mg/dL Creatinine 0.5 (0.4-1.0) mg/dL Estimated GFR (MDRD) 154 (>89) Glucose 88 (70-100) mg/dL Calcium 8.7 (8.5-10.3) mg/dL Total Bilirubin 0.5 (0.2-1.0) mg/dL AST 24 (10-42) IU/L ALT 17 (10-60) IU/L Alkaline Phosphatase 113 (42-121) IU/L Total Protein 6.0 L (6.7-8.2) g/dL Albumin 2.5 L (3.2-5.5) g/dL Globulin 3.5 (2.1-4.2) g/dL Albumin/Globulin Ratio 0.7 L (1.0-2.2)
[2019-07-31] MEDS: LABETALOL 100 MG TABLET PO SCH ×2 (12:57→21:19)
[2019-07-31] MEDS ORDERED: SODIUM CHLORIDE FLUSH 0.9% 10 ML SYRINGE ONE (20:12)
[2019-08-01] MEDS: IBUPROFEN 600 MG TABLET PO SCH ×2 (00:56→09:01)
[2019-08-01] MEDS: LABETALOL 100 MG TABLET PO SCH (09:01)
[2019-08-01] MEDS: DOCUSATE SODIUM 100 MG CAPSULE PO SCH (09:01)
--- NOTE | 2019-08-01 10:18 | PROVIDER PROGRESS NOTE ---
Subjective - Prog Note Date Prog Note Date: 08/01/19 Prog Note Time: 10:13 - Subjective Subjective: Feeling well. No complaints. Lochia minimal. Ambulating, juanito regular diet, voiding. . Discussed contraception. Planning Mirena at visit. BP's 130's/80's on labetalol 200 bid VS otherwise stable, afebrile Abd soft, fundus firm below umbilicus. No significant peripheral edema A/P Stable. BP's still higher than desirable with pt mostly in bed. Will increase to 300 bid and plan to recheck in 4-5 days as outpatient. Discussed contraceptive options. Mirena to be done Baby not ready for DC secondary to labile blood sugars. DC mom today. Objective - Vital Signs/Intake & Output Vital Signs: Vital Signs x48h Temp Pulse Resp BP Pulse Ox 08/01/19 08:00 98.1 F 83 18 139/80 H 100 08/01/19 04:11 98.1 F 97 20 127/70 100 Intake & Output: Intake & Output 07/29/19 07/30/19 07/31/19 08/01/19 23:59 23:59 23:59 23:59 Intake Total 500 500 200 Output Total 2850 1650 Balance -2350 -1150 200 - Lab Results Fish Bones: 07/31/19 06:53 07/31/19 06:53
--- NOTE | 2019-08-01 10:20 | Discharge Plan ---
Discharge Plan Problem Reviewed?: Yes Disposition: Home, Self Care Condition: Good Prescriptions: Ibuprofen [Ibu] 600 mg ORAL Q8HR PRN #20 tablet MDD 2400mg PRN Reason: Pain Labetalol [Trandate] 300 mg PO BID 30 Days #60 tablet Labetalol [Trandate] 300 mg PO BID #60 tablet Vit,Calc76/Iron/Folic [Pnv 29-1 Tablet] 1 tab ORAL DAILY #100 tablet NS Vitamin [Trinatal Rx 1] 1 tab PO DAILYWM #100 tablet Diet: Regular Activity Restrictions: pelvic rest Shower Restrictions: No No Smoking: If you smoke, Please STOP! Call for help.
--- NOTE | 2019-08-01 10:24 | DISCHARGE SUMMARY ---
"Discharge Summary Admit Date: 07/30/19 Discharge Date: 08/01/19 Discharging Provider: Raysa Hugo MD Code Status: Attempt Resuscitation - DIAGNOSES Admission Diagnoses: at 38 weeks Mild preeclampsia Gestational DM - HPI History of Present Illness: 24yo G1 now P1 who was admitted at 38 weeks for IOL secondary to mild preeclampsia and gestational diabetes. - CONSULTS | PROCEDURES Procedures: Vacuum assisted vaginal delivery - HOSPITAL COURSE Hospital Course: Induction was initiated. Her BP's remained in the mild range, normal labs. She did not require insulin. She progressed to full dilation and was delivered by VAVD secondary to terminal decelerations of a viable male infant. her BP's initially ranged 130-150's/80-90's and she was restarted on labetalol 200bid. Her BP after 24 hours was still 130's/80's with minimal activity and the dose was increased to 300bid for DC. She was DC'd on PPD 2 with f/u for BP check arranged. Baby had labile blood sugars and required IV fluid and supplemental feeding in addition to her . She is planning Mirena - ALLERGIES Allergies/Adverse Reactions: Allergies Allergy/AdvReac Type Severity Reaction Status Date / Time No Known Drug Allergies Allergy Verified 07/29/19 19:23 - MEDICATIONS Home Medications: Ambulatory Orders Medication Instructions Recorded Confirmed Acetaminophen [Acetaminophen 8 650 mg ORAL Q8HR PRN MDD 3000mg 08/01/19 08/01/19 Hour] Ibuprofen [Ibu] 600 mg ORAL Q8HR PRN MDD 2400mg 08/01/19 08/01/19 Labetalol [Trandate] 300 mg PO BID 08/01/19 08/01/19 Vit,Calc76/Iron/Folic 1 tab ORAL DAILY 08/01/19 08/01/19 [Pnv 29-1 Tablet] - PHYSICAL EXAM AT DISCHARGE General Appearance: positive: No acute distress Eyes Bilateral: positive: Normal inspection Neck: positive: Nml inspection Respiratory: positive: No respiratory distress Cardiovascular: positive: Regular rate & rhythm Abdomen: positive: Non-tender, No distention, Other (Fundus firm below umbilicus) Skin: positive: Color nml Extremities: positive: Nml appearance Neurologic/Psychiatric: positive: Oriented x3 - LABS Result Diagrams: 07/31/19 06:53 07/31/19 06:53"
[2019-08-01] MEDS ORDERED: IBUPROFEN 600 MG TABLET PO PRN (10:47)
[2019-08-01] MEDS ORDERED: ACETAMINOPHEN PO PRN (10:49)
[2019-08-01] MEDS ORDERED: LABETALOL 100 MG TABLET PO SCH ×2 (11:00→21:00)
[2019-08-01 12:05] VITALS: BP 130/71
--- NOTE | 2019-08-01 14:24 | Labor Flowsheet ---
Labor Flowsheet Datetime Report Generated by CPN: 08/01/2019 14:24 Datetime: 08/01/2019 11:59 VITAL SIGNS NBP Sys/Yary/Mean (mmHg): 130 : 71 : 85 Pulse: 91 LaborFlag: Labor Datetime: 07/31/2019 19:59 SpO2 (%): 100 Datetime: 07/30/2019 08:00 I/O Interventions: Robles Cath Inserted Datetime: 07/30/2019 06:50 Communication Comments: Dr Jimenez @ bedside, will have Dr. Beumer see baby Datetime: 07/30/2019 06:45 UTERINE ACTIVITY Monitor Mode: Internal Frequency (min): 2-2.5 Quality: Strong Duration (sec): 60-90 Pattern: Normal: <= 5 Contractions in 10 Minutes Resting Tone (Palpate): Relaxed ASSESSMENT A Monitor Mode: Internal Scalp Electrode Variability: Moderate 6-25 bpm Decelerations: Variable Category: Category II Comments: indeterminate baseline with HR ranging from 60s to 150s Vacuum: Off Datetime: 07/30/2019 06:30 FHR Baseline Rate : 125 Accelerations: None Datetime: 07/30/2019 05:32 Stage 2 Comments: pushing every other ctx Datetime: 07/30/2019 05:25 Patient Position/Activity: Right Lateral Datetime: 07/30/2019 05:00 Contraction Comments: RN and provider remain @ bedside Datetime: 07/30/2019 04:57 Pushing Position: Pushing with Contractions Datetime: 07/30/2019 04:30 Patient Care Comments: pt tolerating position Datetime: 07/30/2019 04:09 Monitor Interventions for FHR: FSE Applied Datetime: 07/30/2019 04:05 MEDICATIONS Tocolytics: Terbutaline 0.25mg Subcutaneous Datetime: 07/30/2019 03:53 STAGE 2 Pushing: Coached on Pushing Datetime: 07/30/2019 03:52 VAGINAL EXAM Dilatation (cm): 10.0 Effacement (%): 100 Station: -1 Exam by: Dr. Olson Datetime: 07/30/2019 03:30 Monitor Interventions for UA: IUPC Inserted Datetime: 07/30/2019 02:30 Intensity IUP (mmHg): 60-90 Datetime: 07/30/2019 02:12 Membrane Status: Ruptured Membranes Rupture Method: Spontaneous Amniotic Fluid Color: Clear Amniotic Fluid Amount: Moderate Amniotic Fluid Odor: Normal Datetime: 07/30/2019 02:08 COMMUNICATION Communication: Call/Page Placed to Provider Provider Notified (Name): Dr. Wesley Notification Reason: Status Update Datetime: 07/30/2019 02:01 Anesthesia Level Check: T9 Datetime: 07/30/2019 01:59 Actions for Decelerations: Side to Side Datetime: 07/30/2019 01:55 Vaginal Bleeding: Normal Show Cervix, Consistency: Soft Cervix, Position: Anterior Vaginal Exam Comments: bulging bag Datetime: 07/30/2019 01:33 Epidural Procedure: Loading Dose Datetime: 07/30/2019 01:30 FHR Baseline Changes: No Baseline Change Datetime: 07/30/2019 01:19 PROCEDURE TIME OUT Procedure Verify: Correct Patient Identity; Accurate Procedure Consent Form; Agreement on Procedure to be Done; Correct Patient Position ANESTHESIA Anesthesia Plans: Epidural Epidural Positioning: Sitting Datetime: 07/30/2019 00:16 TEACHING Instructional Method: Verbal Plan of Care: Plan of Care Discussed Unit Routine: Medications Pain Management: IV Narcotics; Epidural; Pain Scale/Goals Teaching Comments: Discussed pain management options with patient. Datetime: 07/29/2019 23:47 Analgesics/Sedatives: Fentanyl (mcg) @ 50; Tylenol (mg) @ 650 Datetime: 07/29/2019 23:39 PAIN Pain Scale: 7 Pain Presence: Intermittent Pain Type: Cramping Pain Location: Abdomen; Back Pain Coping: Requesting Pain Medication or Epidural Datetime: 07/29/2019 19:41 PATIENT CARE Oxygen Method: Room Air Datetime: 07/29/2019 19:18 Stage of : Labor
[2019-08-02] MEDS ORDERED: PRENATAL VITAMIN TABLET PO SCH (08:00)
--- NOTE | 2019-08-11 12:00 | PROCEDURE REPORT ---
- HPI Diagnosis/Indication for NST: Pre- Hypertension Current EDU 08/06/19 Gestation 38 Weeks and 6 Days 1 Para 0 Vital Signs Temperature 36.9 C 07/29/19 16:41 Heart Rate 90 07/29/19 16:41 Respiratory Rate 17 07/29/19 16:41 Blood Pressure 158/92 H 07/29/19 16:41 O2 Saturation 100 07/29/19 16:41 Temperature 36.9 C 08/01/19 12:05 Heart Rate 91 08/01/19 12:05 Respiratory Rate 18 08/01/19 12:05 Blood Pressure 130/71 08/01/19 12:05 O2 Saturation 100 08/01/19 12:05 - NST Procedure NST Procedure Start Date 07/29/19 Start Time 16:35 Stop Time 16:55 Vibroacoustic Stimulation Used No Patient States Movement Yes - Results and Plan Findings/Impression: base line 140 rective Plan: Induction of labor. Pre eclampsia
== END 2019-08-01 14:23 | disposition home or self-care (01) | DRG 807 ==
LOC: WFO 16:25 → FBP 16:35 → WFO 17:55 → FBP 17:56
PROVIDERS: ADMIT Obstetrics & Gynecology; ATTEND Obstetrics & Gynecology
PROC: 10D07Z6 Extraction of Products of Conception, Vacuum, Via Natural or Artificial Opening (ICD-10-PCS; principal; 2019-07-30)
PROC: 0KQM0ZZ Repair Perineum Muscle, Open Approach (ICD-10-PCS; 2019-07-30)
PROC: 10H07YZ Insertion of Other Device into Products of Conception, Via Natural or Artificial Opening (ICD-10-PCS; 2019-07-30)
PROC: 3E0E7GC Introduction of Other Therapeutic Substance into Products of Conception, Via Natural or Artificial Opening (ICD-10-PCS; 2019-07-30)
DX: O14.04 Mild to moderate pre-eclampsia, complicating childbirth (principal); Z37.0 Single live birth; O24.420 Gestational diabetes mellitus in childbirth, diet controlled; O26.893 Other specified pregnancy related conditions, third trimester; O76 Abnormality in fetal heart rate and rhythm complicating labor and delivery; O90.89 Other complications of the puerperium, not elsewhere classified; R55 Syncope and collapse; O70.1 Second degree perineal laceration during delivery; O75.81 Maternal exhaustion complicating labor and delivery; O69.81X0 Labor and delivery complicated by cord around neck, without compression, not applicable or unspecified; Z3A.38 38 weeks gestation of pregnancy; Z67.91 Unspecified blood type, Rh negative; Z79.899 Other long term (current) drug therapy
CPT/HCPCS: 36415; 59025; 80053; 82570; 83615; 84156; 84443; 84450; 84550; 85025; 85384; 85610; 85730; 86850; 86900; 86901; 86920; 93005; A9270; J7120

== ENCOUNTER 2019-08-02 08:30 | Outpatient (CLI) | payer OTHER ==
[2019-08-02] MEDS ORDERED: TETANUS/DIPHTHERIA/PERTUSSIS 0.5 ML SYRINGE IM ONE (09:00)
--- NOTE | 2019-08-02 12:25 | Labor Flowsheet ---
Labor Flowsheet Datetime Report Generated by CPN: 08/02/2019 12:25 Datetime: 08/01/2019 11:59 VITAL SIGNS NBP Sys/Yary/Mean (mmHg): 130 : 71 : 85 Pulse: 91 LaborFlag: Labor Datetime: 07/31/2019 19:59 SpO2 (%): 100 Datetime: 07/30/2019 08:00 I/O Interventions: Robles Cath Inserted Datetime: 07/30/2019 06:50 Communication Comments: Dr Jimenez @ bedside, will have Dr. Beumer see baby Datetime: 07/30/2019 06:45 UTERINE ACTIVITY Monitor Mode: Internal Frequency (min): 2-2.5 Quality: Strong Duration (sec): 60-90 Pattern: Normal: <= 5 Contractions in 10 Minutes Resting Tone (Palpate): Relaxed ASSESSMENT A Monitor Mode: Internal Scalp Electrode Variability: Moderate 6-25 bpm Decelerations: Variable Category: Category II Comments: indeterminate baseline with HR ranging from 60s to 150s Vacuum: Off Datetime: 07/30/2019 06:30 FHR Baseline Rate : 125 Accelerations: None Datetime: 07/30/2019 05:32 Stage 2 Comments: pushing every other ctx Datetime: 07/30/2019 05:25 Patient Position/Activity: Right Lateral Datetime: 07/30/2019 05:00 Contraction Comments: RN and provider remain @ bedside Datetime: 07/30/2019 04:57 Pushing Position: Pushing with Contractions Datetime: 07/30/2019 04:30 Patient Care Comments: pt tolerating position Datetime: 07/30/2019 04:09 Monitor Interventions for FHR: FSE Applied Datetime: 07/30/2019 04:05 MEDICATIONS Tocolytics: Terbutaline 0.25mg Subcutaneous Datetime: 07/30/2019 03:53 STAGE 2 Pushing: Coached on Pushing Datetime: 07/30/2019 03:52 VAGINAL EXAM Dilatation (cm): 10.0 Effacement (%): 100 Station: -1 Exam by: Dr. Olson Datetime: 07/30/2019 03:30 Monitor Interventions for UA: IUPC Inserted Datetime: 07/30/2019 02:30 Intensity IUP (mmHg): 60-90 Datetime: 07/30/2019 02:12 Membrane Status: Ruptured Membranes Rupture Method: Spontaneous Amniotic Fluid Color: Clear Amniotic Fluid Amount: Moderate Amniotic Fluid Odor: Normal Datetime: 07/30/2019 02:08 COMMUNICATION Communication: Call/Page Placed to Provider Provider Notified (Name): Dr. Wesley Notification Reason: Status Update Datetime: 07/30/2019 02:01 Anesthesia Level Check: T9 Datetime: 07/30/2019 01:59 Actions for Decelerations: Side to Side Datetime: 07/30/2019 01:55 Vaginal Bleeding: Normal Show Cervix, Consistency: Soft Cervix, Position: Anterior Vaginal Exam Comments: bulging bag Datetime: 07/30/2019 01:33 Epidural Procedure: Loading Dose Datetime: 07/30/2019 01:30 FHR Baseline Changes: No Baseline Change Datetime: 07/30/2019 01:19 PROCEDURE TIME OUT Procedure Verify: Correct Patient Identity; Accurate Procedure Consent Form; Agreement on Procedure to be Done; Correct Patient Position ANESTHESIA Anesthesia Plans: Epidural Epidural Positioning: Sitting Datetime: 07/30/2019 00:16 TEACHING Instructional Method: Verbal Plan of Care: Plan of Care Discussed Unit Routine: Medications Pain Management: IV Narcotics; Epidural; Pain Scale/Goals Teaching Comments: Discussed pain management options with patient. Datetime: 07/29/2019 23:47 Analgesics/Sedatives: Fentanyl (mcg) @ 50; Tylenol (mg) @ 650 Datetime: 07/29/2019 23:39 PAIN Pain Scale: 7 Pain Presence: Intermittent Pain Type: Cramping Pain Location: Abdomen; Back Pain Coping: Requesting Pain Medication or Epidural Datetime: 07/29/2019 19:41 PATIENT CARE Oxygen Method: Room Air Datetime: 07/29/2019 19:18 Stage of : Labor
== END 2019-08-02 09:10 | disposition home or self-care (01) ==
LOC: WFO 08:30 → FBP 08:32 → WFO 09:10
PROVIDERS: ATTEND Obstetrics & Gynecology
DX: Z23 Encounter for immunization (principal)
CPT/HCPCS: 90471